=== PATIENT | female | born 2000 ===

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

== ENCOUNTER 2018-01-20 11:53 | Emergency (ER) | payer OTHER ==
[~2018-01-20] VITALS: Ht 162.6 cm; Wt 89.8 kg
== END 2018-01-20 18:24 | disposition home or self-care (01) ==
LOC: ER 11:53
DX: R10.31 Right lower quadrant pain (principal); R11.2 Nausea with vomiting, unspecified; R19.7 Diarrhea, unspecified

== ENCOUNTER 2019-06-09 17:06 | Emergency (ER) | payer OTHER ==
[~2019-06-09] VITALS: Ht 129.5 cm; Wt 90.7 kg
[2019-06-09] MEDS ORDERED: NAPROXEN500 MG PO (20:35)
== END 2019-06-09 21:13 | disposition home or self-care (01) ==
LOC: ER 17:06
DX: S80.01XA Contusion of right knee, initial encounter (principal); W18.09XA Striking against other object with subsequent fall, initial encounter; Y93.89 Activity, other specified; Y92.59 Other trade areas as the place of occurrence of the external cause; Y99.8 Other external cause status; M54.89 Other dorsalgia

== ENCOUNTER 2020-02-02 22:50 | Emergency (ER) | payer OTHER ==
[~2020-02-02] VITALS: Ht 162.6 cm; Wt 90.7 kg
[~2020-02-02 22:50] MED LIST changes: +NAPROXEN500 MG PO
== END 2020-02-03 05:05 | disposition home or self-care (01) ==
LOC: ER 22:50
DX: K52.89 Other specified noninfective gastroenteritis and colitis (principal); R05 Cough; R19.7 Diarrhea, unspecified; Z03.818 Encounter for observation for suspected exposure to other biological agents ruled out

== ENCOUNTER 2020-04-04 21:33 | Emergency (ER) | payer OTHER ==
[~2020-04-04] VITALS: Ht 160 cm; Wt 95.3 kg
[2020-04-04] MEDS ORDERED: PANADOL EXTRA500 MG (21:48)
[2020-04-04] MEDS ORDERED: INMODIUM (21:49)
[2020-04-05] MEDS ORDERED: INTESTINEX680 M1 PO (03:45)
[2020-04-05] MEDS ORDERED: ZOFRAN8 MG PO ×3 (03:45→03:47)
[2020-04-05] MEDS ORDERED: LEVSIN/SL0.125 MG SL (03:48)
== END 2020-04-05 03:57 | disposition home or self-care (01) ==
LOC: ER 21:33
DX: K52.9 Noninfective gastroenteritis and colitis, unspecified (principal); R10.13 Epigastric pain